=== PATIENT | female | born 1965 | race Caucasian/White ===

== ENCOUNTER 2016-05-13 16:01 | Emergency (ER) ==
--- NOTE | 2016-05-13 17:32 | PROVIDER DOCUMENTATION ---
HPI-Musculoskeletal Pain/Inj - GENERAL Chief Complaint: Return/Recheck Stated Complaint: NECK PAIN, NAUSEA,LIGHT HEADED Time Seen by Provider: 05/13/16 16:54 Source: patient - HX OF PRESENT ILLNESS-MUSKULOSKELTAL Nature of Presenting Problem: Pt is a 51 y/o F c chief complaint of L sided neck pain that has continued since her visit in the ER last week. Pt was evaluated c CT scan and determined to have bulging discs. Pt has been babysitting 3 toddlers and lifting them. She states this has exacerbated her chronic neck pain. Pt states symptoms are improved c flexeril. She contacted [facility] because we referred her to follow up with them but was told it would be 3-4 weeks before she could be seen. Pt denies any new injury or loss of sensation to her upper extremities. On arrival, pt is in minimal distress. Review of Systems - Adult - REVIEW OF SYSTEMS - ADULT Constitutional: reports: no symptoms reported. denies: chills, fatique Eyes: reports: no symptoms reported. denies: blurred vision, double vision Ears, Nose, Mouth & Throat: reports: no symptoms reported. denies: ear pain, nose pain, throat pain Cardiovascular: reports: no symptoms reported. denies: chest pain, orthopnea Respiratory: reports: no symptoms reported. denies: cough, shortness of breath Gastrointestinal: reports: no symptoms reported. denies: abdominal pain, nausea Genitourinary: reports: no symptoms reported. denies: dysuria, hematuria Musculoskeletal: reports: back pain, muscle aches, muscle weakness, neck pain. denies: joint pain, joint swelling Integumentary: reports: no symptoms reported. denies: itching, rash Neurological: reports: no symptoms reported. denies: numbness, paresthesia Psychiatric: reports: no symptoms reported. denies: anxiety, emotional problems Endocrine: reports: no symptoms reported. denies: cold intolerance, heat intolerance Hematologic/Lymphatic: reports: no symptoms reported. denies: blood clots, low blood count Allergic/Immunologic: reports: no symptoms reported. denies: allergic reactions , food allergy All Other Systems: Reviewed and Negative Past History - Adult - PAST MEDICAL HISTORY-ADULT Review of Records: reports: Old Records Reviewed, Nursing Assessment Review, Medications Reviewed, Social history reviewed & non-contributory. Major Childhood Illnesses: reports: denies history Cardiovascular: reports: denies history Respiratory: reports: COPD Gastrointestinal: reports: denies history Obstetrical/Gynecological: reports: denies history Genitourinary: reports: denies history Musculoskeletal: reports: chronic pain, intervertebral disc disease, neck/back injury Neurological: reports: denies history Endocrine/Immune: reports: denies history Other Conditions: reports: denies history - PRIOR SURGERIES/PROCEDURES Surgical/Procedure History: reports: appendectomy, BTL, other (carpal tunnel right hand) - IMMUNIZATION STATUS Childhood Immunizations: See Nurse Assessment Flu Vaccine: See Nurse Assessment - FAMILY HISTORY Family History: reviewed, not pertinent - SOCIAL HISTORY Smoking: cigarettes Provider spent 3-5 mins advising pt. on dangers of tobacco.: Discussed manners to quit use, and f/u contacts for add'l counseling. Substance Use: none/never Alcohol Use Frequency: never Physical Exam-Injury Related - Physical Exam-Injury Related Initial Vital Signs Reviewed: Yes General Appearance: appears well, alert, no apparent distress Eyes: PERRL/EOMI, pink conjunctivae, fundi clear, no AV nicking Head, Ears, Nose, Mouth & Throat: normocephalic/atraumatic, moist mucous membranes, normal ENT inspection Neck: decresed ROM, muscle spasm, tender lateral (left). negative: C-spine tenderness, vertebral point tenderness Respiratory: chest non-tender, lungs clear, normal breath sounds Cardiovascular: normal peripheral pulses, regular rate, rhythm, no edema Abdominal Exam: normal bowel sounds, non tender, soft Lymphatic: no adenopathy Back Exam: normal inspection, no CVA tenderness, no vertebral tenderness Extremity: normal range of motion, non-tender, normal gait Integumentary: normal color, warm/dry Neurologic: grossly normal, no motor/sensory deficits Psych/Mental Status: normal mood/affect, normal thought content, normal thought process, oriented x 3 - Glascow Coma Score Best Eye Response (Pauline): (4) open spontaneously Best Verbal Response (Pauline): (5) oriented Best Motor Response (Pauline): (6) obeys commands Progress - PLAN OF CARE/RESULTS Progress/Plan/Lab Results: Vital Signs - 24 hr 05/13/16 16:14 Temperature 98.1 F Pulse Rate 103 H Respiratory 16 Rate Blood Pressure 142/98 O2 Sat by Pulse 98 Oximetry - CONSULTS/PCP/HOSPITALIST Notification #1 *Consult/PCP/Hospitalist*: Dr. Sen (Ortho) Time Discussed: 17:33 Reason/Comments: Will contact pt tomorrow about follow up in the next couple days. Departure - Departure Time of Disposition Order: 17:34 DIAGNOSIS: Cervical paraspinal muscle spasm, Cervical radiculopathy Disposition: HOME 01 Certified Medical Emergency: Emergent Condition: Stable Additional Instructions: ED Follow Up Instructions: You have been treated by a care provider in the Emergency Department. These instructions are being provided to you so you can have an understanding of how to care for yourself upon discharge. Upon discharge from the Emergency Department, you are responsible for making arrangements for follow-up care by a physician of your choice. Take all prescribed medications as directed. Return to the Emergency Department immediately for any new or worsening symptoms. You may call the Physician Referral phone number at [phone] to obtain a list of Physicians who are taking new patients. Prescriptions: Cyclobenzaprine [Flexeril] 10 mg PO TID #20 tablet Ibuprofen [Motrin] 800 mg PO Q8H PRN PRN #20 tablet PRN Reason: inflammation Omeprazole [Prilosec] 20 mg PO DAILY@0700 #20 capsule Referrals: Velvet Sen MD [STAFF PHYSICIAN] - Attestation - Physician/ EUSEBIO Attestation Patient care was provided by Advanced Practice Provider:: Yes Advanced Practice Provider:: Harley Kate Advanced Practice Provider documentation review:: The Mid-level provider documentation, treatment plan and medical decision making was reviewed by the physician who agrees with all treatment and medical decision making by the P.
[2016-05-13 18:00] VITALS: BP 135/89
== END 2016-05-13 17:59 | disposition home or self-care (01) ==
LOC: ED 16:01
DX: M54.12 Radiculopathy, cervical region (principal); M62.838 Other muscle spasm; M54.2 Cervicalgia; M79.1 Myalgia; M62.81 Muscle weakness (generalized); M54.9 Dorsalgia, unspecified; G89.29 Other chronic pain; J44.9 Chronic obstructive pulmonary disease, unspecified; F17.210 Nicotine dependence, cigarettes, uncomplicated; Z71.6 Tobacco abuse counseling

== ENCOUNTER 2019-01-12 05:51 | Inpatient (IN) ==
--- NOTE | 2019-01-05 15:34 | EKG Report ---
Test Performed on : 01/05/2019 3:12:31 PM Test Reason : PAT Blood Pressure : / mmHG Vent. Rate : 065 BPM Atrial Rate : 065 BPM P-R Int : 150 ms QRS Dur : 082 ms QT Int : 412 ms P-R-T Axes : 039 060 073 degrees QTc Int : 428 ms Normal sinus rhythm. Septal infarct , age undetermined Abnormal ECG When compared with ECG of 24-NOV-2017 01:23, No significant change was found Confirmed by Natan Wilkinson MD ([id number]) on 01/06/2019 9:00:26 AM
[2019-01-05 15:53] LABS: HEMATOCRIT 50.8 % (37.0-47.0); HEMOGLOBIN 16.7 g/dL (12.0-16.0); MCH 29.7 PG (27-31); MCHC 32.9 g/dL (33-37); MCV 90.4 FL (81-99); MPV 10.2 FL (7.4-10.4); RBC 5.62 XMIL (4.2-5.4); RDW 14.8 % (11.5-14.5); WBC 9.79 X1000 (4.8-10.8)
[2019-01-05 16:09] LABS: AGAP 11; BUN 9 mg/dL (8-22); CALCIUM 9.3 mg/dL (8.8-10.2); CHLORIDE 100 mmol/L (98-107); COSMO 274; CREATININE 0.9 mg/dL (0.5-0.9); ESTIMATED GFR > 60; GLUCOSE 92 mg/dL (70-104); SODIUM 138 mmol/L (136-145); TCO2 27 mmol/L (25-35)
[2019-01-12] MEDS ORDERED: SODIUM CHLORIDE 0.9% 10 ML ONE ×2 (06:31→07:28)
[2019-01-12] MEDS ORDERED: NORCURON ONE (06:31)
[2019-01-12] MEDS ORDERED: QUELICIN (DOSE) ONE (06:33)
[2019-01-12] MEDS ORDERED: KEFZOL 1 GM/D5W 1 GM/50 ML IVPB ONE (06:41)
[2019-01-12] MEDS ORDERED: LR 1,000 ML ONE ×2 (06:41→11:03)
[2019-01-12] MEDS ORDERED: NEO-SYNEPHRINE ONE (06:41)
[2019-01-12] MEDS ORDERED: FENTANYL ONE ×2 (06:45→09:41)
[2019-01-12] MEDS ORDERED: VERSED ONE (07:24)
[2019-01-12] MEDS ORDERED: DIPRIVAN 1% ONE (07:27)
[2019-01-12] MEDS ORDERED: NITROGLYCERIN 50 MG/D5W 50 MG/250 ML IV.SOLN ONE (07:49)
[2019-01-12] MEDS ORDERED: KEFZOL ONE (07:55)
[2019-01-12] MEDS ORDERED: HEPARIN ONE (07:56)
[2019-01-12] MEDS ORDERED: NS 1,000 ML ONE (07:56)
[2019-01-12] MEDS ORDERED: NS 500 ML ONE (07:56)
[2019-01-12] MEDS ORDERED: XYLOCAINE 1% ONE (07:56)
[2019-01-12] MEDS ORDERED: MARCAINE 0.25% PF/EPI 1:200,000 ONE (07:56)
[2019-01-12] MEDS ORDERED: RECOTHROM ONE (08:22)
[2019-01-12] MEDS ORDERED: ZOFRAN ONE (08:44)
[2019-01-12] MEDS ORDERED: DECADRON ONE (08:44)
[2019-01-12] MEDS ORDERED: LTA KIT ONE (08:44)
[2019-01-12] MEDS ORDERED: HEPARIN (DOSE) ONE (08:52)
[2019-01-12] MEDS ORDERED: OFIRMEV 1000 MG/ISOTONIC SOLN 1,000 MG/100 ML BOTTLE ONE (09:04)
[2019-01-12] MEDS ORDERED: ROBINUL ONE (09:45)
[2019-01-12] MEDS ORDERED: NEOSTIGMINE ONE (09:45)
--- NOTE | 2019-01-12 10:47 | OPERATIVE NOTE ---
PROCEDURE DATE: 01/12/2019 PROCEDURE PERFORMED: Left carotid endarterectomy with patch angioplasty. SURGEON: Brian Gramajo MD. KITCHEN UTILITY ASSOCIATE: Annie KWON. PREOPERATIVE DIAGNOSIS: High-grade left internal carotid stenosis. POSTOPERATIVE DIAGNOSIS: High grade left internal carotid stenosis. INDICATIONS: This is an 53-year-old lady with a high-grade left internal carotid stenosis, is manifested by internal to common carotid ratio greater than 5 and very high systolic and diastolic velocities. DESCRIPTION OF PROCEDURE: Satisfactory general endotracheal anesthesia was achieved. The head was turned to the right gently. We ultrasounded the left side of the neck, identified where the bifurcation was. We marked the skin there and chose a skin line near where the bifurcation was. We then prepped and draped the left side of the neck in a sterile fashion. We then marked that skin line and anesthetized the skin 0.25 Marcaine with epinephrine. We incised the skin, and carried our incision through the platysma. We identified the anterior border of the sternocleidomastoid muscle. We then first dissected caudad along the anterior border of the sternocleidomastoid muscle down to the omohyoid muscle. We identified the common carotid here and surrounded with an umbilical tape. We then dissected cephalad and identified the recurrent nerve. We avoided the recurrent nerve. We did identified the external carotid, surrounded it with a large vessel loop including the superior thyroid artery and then dissected the internal carotid surrounded it with small vessel loop. Again, we were away from the hypoglossal nerve. 5000 units of heparin were given. After this had circulated for more than 3 minutes, we then clamped the external carotid with a vessel loop. We clamped off the common carotid and used a profunda clamp on the internal. Under 2.5 loupe magnification we then incised the common, extended the incision in the common into the internal through the tight stenosis at the takeoff of the internal. We then placed a 4 to 3 mm Sundt shunt with the smaller end going in the internal and the larger end going in the common. We held in place with a small ring clamp distally and the umbilical tape proximally. We then used a [place] tool. Under 2.5 loupe magnification we raised the plaque out of the bulb. We transected it proximally used a [place] to dissect it out of the external first and then out of the internal. We had a satisfactory taper point in the internal. The tight stenosis was removed with the plaque. We then irrigated out the endarterectomized vessel and removed all leaflets we could identify. I did not feel that tacking the intima was needed. We then obtained a 1 x 6 bovine patch and after it had soaked appropriately we then sewed the patch as a patch angioplasty using a 6-0 Prolene stitch. As we neared completion, we back bled the external, removed the shunt from the internal and clamped it once again, then removed the shunt from the common and fore bled the common. We clamped it off. We then finished the patch angioplasty. We held the internal occluded, opened the external, then the common, then after 5 seconds opened the internal. A couple of extra 6-0 Prolene simple stitches were used on the lateral wall of the patch angioplasty to achieve satisfactory hemostasis. We used a Ultrafoam as well and after 5 minutes there appeared to be no bleeding from the needle holes. Good flow was present in the artery. A good pulse was noted in the internal. There is no evidence of dissection. We irrigated out the wound with Kefzol impregnated saline. We placed a Daniel drain within the wound bringing it out the lower portion of the neck and secured it at the skin level with 2-0 silk. We then closed the platysma with a running 3-0 Polysorb. Once again, injected 0.25 Marcaine with epinephrine in the subcutaneous tissue and then closed the skin with 4-0 Polysorb subcuticular stitch. Telfa and a sterile OpSite was applied. Sterile gauze was placed around the drain exit site. She tolerated the procedure satisfactorily and was awakening at the time of this dictation. cc: Brian Gramajo MD [facility]
[2019-01-12] MEDS ORDERED: ZOFRAN IV PRN (11:23)
[2019-01-12] MEDS ORDERED: ULTRAM PO PRN (11:23)
[2019-01-12] MEDS: LR 1,000 ML IV SCH ×2 (11:40→23:42)
[2019-01-12] MEDS: OFIRMEV 1000 MG/ISOTONIC SOLN 1,000 MG/100 ML BOTTLE IV SCH ×3 (11:44→23:42)
[2019-01-12] MEDS: NEURONTIN PO SCH ×2 (14:10→20:24)
--- NOTE | 2019-01-12 18:40 | GENERAL SURGERY PROGRESS NOTE ---
DATE: 01/11/2019 TIME: 3:50 p.m. Ms. Reyna is doing generally well. Her heart rate is 63, blood pressure is 100/59. She is awake and alert. Her trachea is in the midline. There is no significant neck hematoma. Neurologically she is intact and moves all extremities, and speaks satisfactorily. The plan will be to give her clear liquids, and hopefully we will be able to remove her drain in the morning and move her out. cc: Brian Gramajo MD
[2019-01-12] MEDS ORDERED: DESYREL PO SCH (21:00)
[2019-01-13] MEDS: OFIRMEV 1000 MG/ISOTONIC SOLN 1,000 MG/100 ML BOTTLE IV SCH (04:01)
[2019-01-13] MEDS ORDERED: SALINE LOCK IV FLUID XX ONE (07:28)
--- NOTE | 2019-01-13 07:44 | GENERAL SURGERY PROGRESS NOTE ---
DATE: 01/13/2019 SUBJECTIVE: She is postop day 1 after a left carotid endarterectomy. She is doing generally well. OBJECTIVE: Her trachea is the midline. There is no significant neck hematoma. Neurologically she is fine. She slept well last night. Heart rate is 50, blood pressure 113/76. PLAN: The plan is to remove her drain and then transfer her out to a regular room. We will advance her diet. cc: Brian Gramajo MD
[2019-01-13] MEDS: NEURONTIN PO SCH (08:29)
[2019-01-13] MEDS ORDERED: ASPIRIN PO SCH (09:00)
[2019-01-13] MEDS ORDERED: NEURONTIN PO SCH (14:00)
[2019-01-13] MEDS ORDERED: ULTRAM PO PRN (14:30)
[2019-01-13] MEDS ORDERED: ZOFRAN IV PRN (14:31)
[2019-01-13 16:23] VITALS: BP 122/80
[2019-01-13] MEDS ORDERED: OFIRMEV 1000 MG/ISOTONIC SOLN 1,000 MG/100 ML BOTTLE IV SCH (17:00)
--- NOTE | 2019-01-13 18:09 | GENERAL SURGERY PROGRESS NOTE ---
DATE: 01/13/2019 SUBJECTIVE: Ms. Reyna is doing well. She tolerated solid food well. Were going to go ahead and discharge her home. She will resume her usual home medications including aspirin. We will give her some tramadol for pain. She will return to see me in the office in a week. Wound care was discussed. cc: Brian Gramajo MD
[2019-01-13] MEDS ORDERED: DESYREL PO SCH (21:00)
[2019-01-14] MEDS ORDERED: ASPIRIN PO SCH (09:00)
== END 2019-01-13 16:20 | disposition home or self-care (01) | DRG 39 ==
LOC: SURHOLD 05:51 → ICU 09:50
PROVIDERS: ADMIT Surgery; ATTEND Surgery